=== PATIENT | male | born 1975 | race Caucasian/White ===

== ENCOUNTER 2021-10-05 12:31 | Emergency (ER) | payer OTHER ==
[~2021-10-05] VITALS: Ht 193 cm; Wt 136.1 kg
[2021-10-05 12:49] VITALS: BP 149/78
--- NOTE | 2021-10-05 12:54 | NUR ---
PT AMBULATED TO A WITH A STEADY GAIT.
--- NOTE | 2021-10-05 13:24 | NUR ---
DR. ARTEAGA AT PT BEDSIDE FOR FURTHER EVALUATION.
[2021-10-05] MEDS ORDERED: BACITRACIN OINT 500 UNITS/GM PKT TP ONE ×2 (14:13→14:15)
[2021-10-05] MEDS ORDERED: MUPI2CRE22 TP (14:17)
[2021-10-05 14:30] VITALS: BP 149/78
--- NOTE | 2021-10-05 14:31 | NUR ---
Patient discharged with v/s stable. Written and verbal after care instructions given and explained. Patient alert, oriented and verbalized understanding of instructions. Ambulatory with steady gait. All questions addressed prior to discharge. ID band removed. Patient advised to follow up with PMD. Rx of MUPIROCIN CALCIUM given. Patient educated on indication of medication including possible reaction and side effects. Opportunity to ask questions provided and answered.
== END 2021-10-05 14:30 | disposition home or self-care (01) ==
LOC: MED 12:31
DX: S61.211A Laceration without foreign body of left index finger without damage to nail, initial encounter (principal); Z79.899 Other long term (current) drug therapy; W27.8XXA Contact with other nonpowered hand tool, initial encounter; Y93.89 Activity, other specified; Y92.89 Other specified places as the place of occurrence of the external cause; Y99.8 Other external cause status
CPT/HCPCS: 99283

== ENCOUNTER 2024-03-20 20:10 | Emergency (ER) | payer OTHER ==
[~2024-03-20] VITALS: Ht 193 cm; Wt 139.7 kg
[~2024-03-20 20:10] MED LIST: MUPI2CRE22 TP
[2024-03-20 20:27] VITALS: BP 152/81; PULSE 84; RESP 22; TEMP 99.5; O2SAT 97
--- NOTE | 2024-03-20 20:37 | NUR ---
TO BED 9
--- NOTE | 2024-03-20 20:43 | NUR ---
PT RECEIVED. PT REPORT GOING TO [facility]RGENT CARE [facility] TODAY AT 1330 TO R/O UTI. RECEIVED A SHOT OF ROCEPHEN AROUND 1415. PT REPORT ROCEOHEN "MADE HIME FEEL WORSE" "FELT SICK" "FELT LIKE COMING DOWN WITH SOMETHING". PT REPORT 6/10 STOMACH PAIN, REPORT PAIN BEGAN DONNIE MORNING AND HAS REPORTED DIARRHEA AFTER EATING ONSET 20 MIN AFTER EATING. PT REPORTS "CANT KEEP ANYTHING DOWN" PT REPORTED VOMITING AT 1820 FIRST OCCURANCE. PMH DENIES NO ALLERGIES
[2024-03-20] MEDS ORDERED: ONDANSETRON 4 MG/2 ML VIAL IVP ONE (21:20)
[2024-03-20] MEDS ORDERED: KETOROLAC 30 MG/ML VIAL IVP ONE (21:20)
[2024-03-20] MEDS ORDERED: NACL 0.9% 1,000 ML IV ONE (21:20)
[2024-03-20 21:40] LABS: APPEARANCE,URINE CLEAR (CLEAR); BILIRUBIN,URINE NEGATIVE (NEGATIVE); BLOOD, URINE 1+ (NEGATIVE); COLOR,URINE YELLOW (YELLOW); LEUKOCYTE ESTERASE ,URINE NEGATIVE (NEGATIVE); NITRITE, URINE NEGATIVE (NEGATIVE); PROTEIN,URINE NEGATIVE (NEGATIVE); UGLUCOSE NEGATIVE (NEGATIVE); UROBILINOGEN,URINE 0.2 EU/dL (0.2 - 1)
[2024-03-20 21:47] LABS: BASOPHILS % (AUTO) 0.4 % (0.0-2.0); EOSINOPHILS # (AUTO) 0.1 K/uL (0-0.4); EOSINOPHILS % (AUTO) 0.5 % (0.0-4.0); HEMATOCRIT 36.2 % (36-52); HEMOGLOBIN 11.9 g/dL (12.0-18.0); LYMPHOCYTES # (AUTO) 1.7 K/uL (2.0-11.5); LYMPHOCYTES % (AUTO) 15.4 % (20.5-51.1); MEAN CORPUSCULAR HEMOGLOBIN 28 pg (27-31); MEAN CORPUSCULAR HGB CONC 33 g/dL (33-37); MEAN CORPUSCULAR VOLUME 83.7 fL (80-94); MONOCYTES # (AUTO) 1.3 K/uL (0.8-1.0); MONOCYTES % (AUTO) 11.6 % (1.7-9.3); NEUTROPHILS # (AUTO) 7.8 K/uL (1.8-7.7); NEUTROPHILS % (AUTO) 72.1 % (42.2-75.2); PLATELET COUNT (AUTO) 222 K/uL (140-450); RED BLOOD CELL COUNT(AUTO) 4.33 MIL/uL (4.20-6.10); RED CELL DISTRIBUTION WIDTH 16.5 % (11.6-13.7); WHITE BLOOD COUNT (AUTO) 10.8 K/uL (4.8-10.8)
[2024-03-20 21:55] LABS: ANION GAP 14.1 (8-16); CALCIUM 9.2 mg/dL (8.5-10.1); CARBON DIOXIDE 25.8 mmol/L (21-32); CREATININE 1.2 mg/dL (0.6-1.3); POTASSIUM 3.9 mmol/L (3.5-5.1)
[2024-03-20 22:03] LABS: ALBUMIN 3.6 g/dL (3.4-5.0); BILIRUBIN,DIRECT 0.1 mg/dL (0.0-0.3); TOTAL BILIRUBIN 0.6 mg/dL (0.0-1.0); TOTAL PROTEIN, SERUM 7.3 g/dL (6.4-8.2)
[2024-03-20] MEDS ORDERED: CIPR500T4 PO (22:13)
[2024-03-20] MEDS ORDERED: METR-435 PO (22:13)
[2024-03-20 22:17] VITALS: BP 149/89; RESP 16; TEMP 98.4; O2SAT 95
--- NOTE | 2024-03-20 22:17 | NUR ---
Patient discharged with v/s stable. Written and verbal after care instructions given and explained. Patient alert, oriented and verbalized understanding of instructions. Ambulatory with to car. All questions addressed prior to discharge. ID band removed. Patient advised to follow up with PMD. Rx of CIPRO, METRONIDAZOLE given. Patient educated on indication of medication including possible reaction and side effects. Opportunity to ask questions provided and answered.
== END 2024-03-20 22:17 | disposition home or self-care (01) ==
LOC: MED 20:10
DX: K57.32 Diverticulitis of large intestine without perforation or abscess without bleeding (principal); Z79.2 Long term (current) use of antibiotics; Z79.899 Other long term (current) drug therapy
CPT/HCPCS: 36415; 80048; 80076; 81003; 83690; 85025; 99284